=== PATIENT | male | born 1995 | race African-American/Black ===

== ENCOUNTER 2019-05-02 08:07 | Emergency (ER) | payer OTHER ==
[2019-05-02 09:00] LABS: Absolute Lymphocytes (CBC) 2.5 K/uL (0.7-4.9); Absolute Monocytes 0.4 K/uL (0.1-1.3); Absolute Neutrophil 1.6 K/uL (1.8-8.0); Basophils % 1.3 % (0-1.3); Eosinophils % 1.5 % (0-4.4); Hematocrit 45.5 % (39.6-49.0); Lymphocytes % 53.6 % (15.3-44.8); MPV 7.6 fL (7.6-11.3); Monocytes % 9.6 % (3.3-12.3); RBC Red Blood Cell Count 5.13 M/uL (4.33-5.43)
[2019-05-02 09:03] LABS: Protime INR 1.23
[2019-05-02 09:17] LABS: ALT/SGPT 25 U/L (12-78); AST/SGOT 15 U/L (15-37); Albumin 4.3 g/dL (3.4-5.0); Alkaline Phosphatase 65 U/L (45-117); BUN Blood Urea Nitrogen 6 mg/dL (7-18); Bicarbonate 28 mmol/L (21-32); Bilirubin Direct 0.1 mg/dL (0-0.2); Bilirubin Total 0.3 mg/dL (0.2-1.0); Glucose Level 89 mg/dL (74-106); Magnesium 2.4 mg/dL (1.8-2.4); NT PRO-BNP 6 pg/mL (<125); Potassium 4.1 mmol/L (3.5-5.1); Protein, Total 7.8 g/dL (6.4-8.2); Sodium Level 138 mmol/L (136-145); Troponin (Emerg Dept Use Only) < 0.02 ng/mL (0.0-0.045)
--- NOTE | 2019-05-02 09:53 | EKG ---
Test Date: 2019-05-02 Test Time: 08:33:39 Assistant Softball Coach: ROSETTA MEASUREMENT RESULTS: Intervals: Rate: 72 NV: 160 QRSD: 102 QT: 370 QTc: 405 [place]: P: 74 NV: 160 QRS: 70 T: 65 INTERPRETIVE STATEMENTS: Normal sinus rhythm Early repolarization Normal ECG No previous ECG available for comparison Electronically Signed On 05-02-19 09:53:13 CDT by Gavin Quinones
[2019-05-02] MEDS ORDERED: ASPIRIN 81 MG CHEWABLE TABLET ONE (09:57)
--- NOTE | 2019-05-02 10:26 | RAD REPORT ---
EXAM DESCRIPTION: RAD - Chest Single View - 05/02/2019 9:04 am CLINICAL HISTORY: Chest pain COMPARISON: None. TECHNIQUE: AP portable chest image was obtained 0854 hours . FINDINGS: Lungs are clear. Heart and vasculature are normal. No measurable pleural effusion and no p neumothorax. No acute bony abnormality seen. No acute aortic findings suspected. IMPRESSION: No acute cardiopulmonary process.
--- NOTE | 2019-05-02 13:00 | ER ---
Nurse's Notes [facility] Name: Mingo Zabala Age: 23 yrs Sex: Male : 1995 Arrival Date: 05/02/2019 Time: 08:10 Bed 15 Private MD: Diagnosis: Chest pain, unspecified Presentation: 05/02 08:32 Presenting complaint: Patient states: about 2-3 days ago, i started having this chest hj pain, non radiating, the pain moves to my veins; denies N/V;. Transition of care: patient was not received from another setting of care. Onset of symptoms was May 02, 2019. Risk Assessment: Do you want to hurt yourself or someone else? Patient reports no desire to harm self or others. Initial Sepsis Screen: Does the patient meet any 2 criteria? No. Patient's initial sepsis screen is negative. Does the patient have a suspected source of infection? No. Patient's initial sepsis screen is negative. Care prior to arrival: None. 08:32 Method Of Arrival: Ambulatory 08:32 Acuity: MONICO 3 hj Triage Assessment: 08:34 General: Appears in no apparent distress. uncomfortable, Behavior is cooperative, hj appropriate for age, anxious. Pain: Complains of pain in chest. Cardiovascular: Capillary refill < 3 seconds Patient's skin is warm and dry. Historical: - Allergies: 08:33 No Known Allergies; hj - Home Meds: 08:33 None [Active]; hj - PMHx: 08:33 None; hj - PSHx: 08:33 None; hj - Immunization history:: Adult Immunizations up to date. - Social history:: Smoking status: Patient/guardian denies using tobacco, Patient/guardian denies using alcohol. - Ebola Screening: : Patient negative for fever greater than or equal to 101.5 degrees Fahrenheit, and additional compatible Ebola Virus Disease symptoms Patient denies exposure to infectious person Patient denies travel to an Ebola-affected area in the 21 days before illness onset. Screenin:33 Abuse screen: Denies threats or abuse. Denies injuries from another. Nutritional hj screening: No deficits noted. Tuberculosis screening: No symptoms or risk factors identified. Fall Risk None identified. Assessment: 08:34 Pain: Pain does not radiate. Pain began suddenly. hj 08:34 General: Appears in no apparent distress. uncomfortable, Behavior is cooperative, hj appropriate for age, anxious. Neuro: Level of Consciousness is awake, alert, obeys commands, Oriented to person, place, time, situation, Appropriate for age. Cardiovascular: Capillary refill < 3 seconds Patient's skin is warm and dry. Respiratory: Airway is patent Respiratory effort is even, unlabored, Respiratory pattern is regular, symmetrical. GI: No signs and/or symptoms were reported involving the gastrointestinal system. : No signs and/or symptoms were reported regarding the genitourinary system. EENT: No signs and/or symptoms were reported regarding the EENT system. Derm: No signs and/or symptoms reported regarding the dermatologic system. Musculoskeletal: No signs and/or symptoms reported regarding the musculoskeletal system. 09:30 Reassessment: Patient and/or family updated on plan of care and expected duration. Pain hj level reassessed. Patient is alert, oriented x 3, equal unlabored respirations, skin warm/dry/pink. awaiting results;. 10:29 Reassessment: Patient and/or family updated on plan of care and expected duration. Pain hj level reassessed. Patient is alert, oriented x 3, equal unlabored respirations, skin warm/dry/pink. awaiting results and POC: Patient states feeling better. Vital Signs: 08:34 BP 136 / 88; Pulse 78; Resp 18; Temp 98.1(O); Pulse Ox 98% on R/A; Weight 92.99 kg; hj Height 5 ft. 11 in. (180.34 cm); Pain 4/10; 09:44 BP 140 / 85; Pulse 75; Resp 18; Pulse Ox 99% on R/A; hj 10:30 BP 130 / 80; Pulse 72; Resp 18; Pulse Ox 99% on R/A; hj 11:46 BP 132 / 78; Pulse 72; Resp 18; Pulse Ox 100% on R/A; hj 08:34 Body Mass Index 28.59 (92.99 kg, 180.34 cm) ED Course: 08:10 Patient arrived in ED. tw3 08:28 Poli Ellis PA is PHCP. [facility] 08:28 Jaime Wood MD is Attending Physician. [facility] 08:32 Raghav Ambrosio, RICHARD is Primary Nurse. hj 08:33 Triage completed. hj 08:34 Arm band placed on right wrist. hj 08:34 Patient has correct armband on for positive identification. Placed in gown. Bed in low hj position. Call light in reach. Side rails up X 1. network professional on. Pulse ox on. NIBP on. 08:34 Patient maintains SpO2 saturation greater than 95% on room air. hj 08:45 Initial lab(s) drawn, by me, sent to lab. Inserted saline lock: 22 gauge in right hj antecubital area, using aseptic technique. Blood collected. 09:02 X-ray completed. Portable x-ray completed in exam room. Patient tolerated procedure sw well. 09:03 XRAY Chest (1 view) In Process Unspecified. EDMS 10:52 EKG done, by chemistry technologist. reviewed by Poli MCRAE. at1 11:46 No provider procedures requiring assistance completed. IV discontinued, intact, hj bleeding controlled, No redness/swelling at site. Pressure dressing applied. Administered Medications: 09:31 Drug: Aspirin Chewable Tablet 324 mg Route: PO; hj 09:42 Follow up: Response: No adverse reaction Outcome: 11:21 Discharge ordered by . [facility] 11:46 Discharged to home ambulatory, with family. hj 11:46 Condition: stable 11:46 Discharge instructions given to patient, Instructed on discharge instructions, follow up and referral plans. Demonstrated understanding of instructions, follow-up care. 11:47 Patient left the ED. Signatures: Dispatcher [employer] EDMS Poli Ellis PA PA jmm Gonzales, Amanda, arts administrator EKG Tat1 Kendra Ramirez Henry, RN RN Lisa Flood tw3
--- NOTE | 2019-05-02 13:01 | EDPHYS ---
Physician Documentation [facility] Name: Mingo Zabala Age: 23 yrs Sex: Male : 1995 Arrival Date: 05/02/2019 Time: 08:10 Bed 15 Private MD: ED Physician Jaime Wood HPI: 05/02 08:29 This 23 yrs old Black Male presents to ER via Ambulatory with complaints of Chest Pain. [facility] 08:29 The patient or guardian reports chest pain that is located primarily in the substernal [facility] area. The pain does not radiate. Associated signs and symptoms: Pertinent negatives: shortness of breath. The chest pain is described as sharp. Duration: The patient or guardian reports a single episode, that is still ongoing. Modifying factors: The symptoms are alleviated by nothing. the symptoms are aggravated by deep breath, movement. This is a 23 year old male with no chronic medical conditions that presents to the ED with complaints of left sided chest pain which has been constant for 3 days. Patient attributes his pain to eating greasy food. Patient denies radiation of pain. Patient denies fever. Pain is worsened with movement of his left arm and deep inspiration. Family history of CAD, denies etoh, denies recreational drug use, denies tobacco use. . Historical: - Allergies: 08:33 No Known Allergies; hj - Home Meds: 08:33 None [Active]; hj - PMHx: 08:33 None; hj - PSHx: 08:33 None; hj - Immunization history:: Adult Immunizations up to date. - Social history:: Smoking status: Patient/guardian denies using tobacco, Patient/guardian denies using alcohol. - Ebola Screening: : Patient negative for fever greater than or equal to 101.5 degrees Fahrenheit, and additional compatible Ebola Virus Disease symptoms Patient denies exposure to infectious person Patient denies travel to an Ebola-affected area in the 21 days before illness onset. ROS: 08:35 Constitutional: Negative for fever, chills, and weight loss. jmm 08:35 Back: Negative for injury and pain, Neuro: Negative for headache, weakness, numbness, tingling, and seizure. 08:35 Cardiovascular: Positive for chest pain. 08:35 Respiratory: Negative for cough, shortness of breath. 08:35 All other systems are negative. Exam: 08:35 Constitutional: This is a well developed, well nourished patient who is awake, alert, jmm and in no acute distress. Head/Face: atraumatic. Eyes: EOMI, no conjunctival erythema appreciated ENT: Moist Mucus Membranes Neck: Trachea midline, Supple 08:35 Chest/axilla: Inspection: normal, Palpation: is normal. 08:35 Cardiovascular: Rate: normal, Rhythm: regular. 08:35 Respiratory: the patient does not display signs of respiratory distress, Respirations: normal, Breath sounds: are clear throughout. 08:35 Abdomen/GI: Inspection: abdomen appears normal, Bowel sounds: normal, Palpation: abdomen is soft and non-tender, in all quadrants. 08:35 Back: ROM is normal. 08:35 Musculoskeletal/extremity: ROM: no acute changes, intact in all extremities. 08:35 Skin: Appearance: Color: normal in color. 08:35 Neuro: Orientation: is normal, Mentation: is normal, Memory: is normal. 08:35 Psych: Behavior/mood is pleasant, cooperative. Vital Signs: 08:34 BP 136 / 88; Pulse 78; Resp 18; Temp 98.1(O); Pulse Ox 98% on R/A; Weight 92.99 kg; Height 5 ft. 11 in. (180.34 cm); Pain 4/10; 09:44 BP 140 / 85; Pulse 75; Resp 18; Pulse Ox 99% on R/A; hj 10:30 BP 130 / 80; Pulse 72; Resp 18; Pulse Ox 99% on R/A; hj 11:46 BP 132 / 78; Pulse 72; Resp 18; Pulse Ox 100% on R/A; hj 08:34 Body Mass Index 28.59 (92.99 kg, 180.34 cm) MDM: 08:29 Patient medically screened. [facility] 11:20 Data reviewed: vital signs, nurses notes. Counseling: I had a detailed discussion with [facility] the patient and/or guardian regarding: the historical points, exam findings, and any diagnostic results supporting the discharge/admit diagnosis, lab results, radiology results, the need for outpatient follow up, to return to the emergency department if symptoms worsen or persist or if there are any questions or concerns that arise at home. ED course: HEART SCORE = 2, PERC negative. Patient advised to follow up with pcp for reevaluation. Patient is otherwise given strict return precautions. Chest pain is relieved in the ED. . 05/02 08:37 Order name: Basic Metabolic Panel; Complete Time: 09:19 [facility] 05/02 08:37 Order name: CBC with Diff; Complete Time: 09:06 [facility] 05/02 08:37 Order name: LFT's; Complete Time: 09:19 [facility] 05/02 08:37 Order name: Magnesium; Complete Time: 09:19 [facility] 05/02 08:37 Order name: NT PRO-BNP; Complete Time: 09:19 [facility] 05/02 08:37 Order name: PT-INR; Complete Time: 09:19 [facility] 05/02 08:37 Order name: Troponin (emerg Dept Use Only); Complete Time: 09:19 [facility] 05/02 08:37 Order name: XRAY Chest (1 view) [facility] 05/02 08:37 Order name: EKG; Complete Time: 08:40 [facility] 05/02 08:37 Order name: Cardiac monitoring; Complete Time: 08:38 [facility] 05/02 08:37 Order name: EKG - Nurse/Tech; Complete Time: 08:38 [facility] 05/02 08:37 Order name: IV Saline Lock; Complete Time: 08:54 [facility] 05/02 08:37 Order name: Labs collected and sent; Complete Time: 08:54 [facility] 05/02 08:37 Order name: O2 Per Protocol; Complete Time: 08:38 [facility] 05/02 08:37 Order name: O2 Sat Monitoring; Complete Time: 08:38 jmm Administered Medications: 09:31 Drug: Aspirin Chewable Tablet 324 mg Route: PO; 09:42 Follow up: Response: No adverse reaction Disposition: 05/02/19 11:21 Discharged to Home. Impression: Chest pain, unspecified. - Condition is Stable. - Discharge Instructions: Nonspecific Chest Pain. - Medication Reconciliation Form, Thank You Letter, Antibiotic Education, Prescription Opioid Use form. - Follow up: Private Physician; When: 2 - 3 days; Reason: Recheck today's complaints, Continuance of care, Re-evaluation by your physician. Addendum: 05/09/2019 07:09 Co-signature as Attending Physician, Jaime Wood MD I agree with the assessment and c hernandez plan of care. Signatures: Dispatcher [employer] EDJaime Perez MD MD suly Mickail, Poli, PA PA Raghav Harris, RN RN hj Corrections: (The following items were deleted from the chart) 05/02 11:47 11:21 05/02/2019 11:21 Discharged to Home. Impression: Chest pain, unspecified. hj Condition is Stable. Forms are Medication Reconciliation Form, Thank You Letter, Antibiotic Education, Prescription Opioid Use. Follow up: Private Physician; When: 2 - 3 days; Reason: Recheck today's complaints, Continuance of care, Re-evaluation by your physician. mike
== END 2019-05-02 11:47 | disposition home or self-care (01) ==
LOC: ER 08:07
DX: R07.9 Chest pain, unspecified (principal)
CPT/HCPCS: 36415; 71045; 80048; 80076; 83735; 83880; 84484; 85025; 85610; 93005; 99285